=== PATIENT | male | born 1965 | race Caucasian/White ===

== ENCOUNTER 2018-04-19 17:56 | Emergency (ER) | payer OTHER ==
[~2018-04-19] VITALS: Ht 165.1 cm; Wt 83.9 kg
[~2018-04-19 17:56] MED LIST: CRESTOR40 MG; GLUCOPHAGE XR500 MG; SINGULAIR 10MG10 MG; TRICOR145 MG; TRIUMEQ; ZYRTEC10 M3
[2018-04-19] MEDS ORDERED: CRESTOR10 MG (18:13)
== END 2018-04-19 20:53 | disposition home or self-care (01) ==
LOC: ER 17:56
DX: I10 Essential (primary) hypertension (principal); R51 Headache

== ENCOUNTER 2018-04-22 09:35 | Outpatient (CLI) | payer OTHER | END 2018-04-22 09:44 | disposition home or self-care (01) | LOC: RAD 09:35 | DX: J01.90 Acute sinusitis, unspecified (principal) ==

== ENCOUNTER → 2018-04-22 | Emergency (ER) | payer OTHER ==
[~2018-04-22] MED LIST changes: +CRESTOR10 MG
== END | disposition left against medical advice (07) ==
LOC: ER 19:32
DX: Z53.20 Procedure and treatment not carried out because of patient's decision for unspecified reasons (principal)

== ENCOUNTER 2018-09-05 09:58 | Outpatient (CLI) | payer OTHER ==
[2018-09-06] MEDS ORDERED: FORTAMET1000 MG (00:29)
[2018-09-06] MEDS ORDERED: LOSARTAN POTASS50 MG (00:29)
[2018-09-06] MEDS ORDERED: TRIUMEQ TABLET1 EACH (00:31)
== END 2018-09-05 11:24 | disposition home or self-care (01) ==
LOC: MAMO-SONO 09:58
DX: N63.20 Unspecified lump in the left breast, unspecified quadrant (principal)

== ENCOUNTER 2018-09-06 00:16 | Emergency (ER) | payer OTHER ==
[~2018-09-06] VITALS: Ht 165.1 cm; Wt 81.6 kg
[2018-09-06] MEDS ORDERED: FORTAMET1000 MG (00:29)
[2018-09-06] MEDS ORDERED: LOSARTAN POTASS50 MG (00:29)
[2018-09-06] MEDS ORDERED: TRIUMEQ TABLET1 EACH (00:31)
== END 2018-09-06 03:51 | disposition home or self-care (01) ==
LOC: ER 00:16
DX: I16.0 Hypertensive urgency (principal); I10 Essential (primary) hypertension

== ENCOUNTER 2018-09-12 14:00 | Outpatient (CLI) | payer OTHER ==
[~2018-09-12 14:00] MED LIST changes: +FORTAMET1000 MG; +LOSARTAN POTASS50 MG; +TRIUMEQ TABLET1 EACH
== END 2018-09-12 14:16 | disposition home or self-care (01) ==
LOC: RAD 14:00
DX: M54.2 Cervicalgia (principal); M54.6 Pain in thoracic spine; M77.51 Other enthesopathy of right foot and ankle

== ENCOUNTER → 2019-01-22 | Emergency (ER) | payer OTHER | END | disposition left against medical advice (07) | LOC: ER 23:16 | DX: Z53.20 Procedure and treatment not carried out because of patient's decision for unspecified reasons (principal) ==

== ENCOUNTER → 2019-05-14 | Outpatient (CLI) | payer OTHER | END | disposition home or self-care (01) | LOC: TOM 07:15 | DX: Z12.11 Encounter for screening for malignant neoplasm of colon (principal); Z80.0 Family history of malignant neoplasm of digestive organs; Z86.010 Personal history of colon polyps; B20 Human immunodeficiency virus [HIV] disease ==

== ENCOUNTER 2022-07-17 07:25 | Outpatient (CLI) | payer OTHER | END 2022-07-17 07:27 | disposition home or self-care (01) | LOC: LAB 07:25 | PROVIDERS: ATTEND Internal Medicine Cardiovascular Disease | DX: N40.0 Benign prostatic hyperplasia without lower urinary tract symptoms (principal) ==

== ENCOUNTER 2023-07-20 15:13 | Outpatient (CLI) | payer OTHER ==
[2023-07-20 15:56] LABS: HEMATOCRIT 47.7 % (39.0-48.0); HEMOGLOBIN 16.1 g/dL (13-16.00); MEAN CELL VOLUME 91.7 fL (80.0-100.00); MEAN CORPUSCULAR HEMOGLOBIN 30.9 pg (27.00-32.0); MEAN CORPUSCULAR HGB CONC 33.7 g/dl (32.0-36.0); PLATELET COUNT 336 K/uL (150-450); RED CELL DISTRIBUTION WIDTH 13.9 % (11.5-14.5)
[2023-07-20 16:20] LABS: INR 0.98; PARTIAL THROMBOPLASTIN TIME 30.8 SECONDS (22.0-34.0); PROTHROMBIN TIME 10.3 SECONDS (9.0-11.5)
[2023-07-20 16:26] LABS: ALBUMIN 4.3 gm/dL (3.4-5.0); BILIRUBIN TOTAL 0.66 mg/dL (0.3-1.2); CALCIUM 10.4 mg/dL (8.5-10.1); CREATININE SERUM 1.04 mg/dL (0.70-1.30); GFR 73.61; GLOBULINA 3.8 G/DL (2.4-3.5); POTASSIUM 4.99 mEq/L (3.5-5.1); TOTAL PROTEIN 8.1 gm/dL (6.4-8.2)
== END 2023-07-20 15:36 | disposition home or self-care (01) ==
LOC: LAB 15:13
PROVIDERS: ATTEND Internal Medicine Cardiovascular Disease
DX: R53.83 Other fatigue (principal); I26.09 Other pulmonary embolism with acute cor pulmonale; E78.1 Pure hyperglyceridemia; Z79.01 Long term (current) use of anticoagulants

== ENCOUNTER → 2023-08-25 | Emergency (ER) | payer OTHER ==
[~2023-08-25] VITALS: Ht 165.1 cm; Wt 74.8 kg
[~2023-08-25] MED LIST changes: +ACETAMINOPHEN 500 MG GEL..CAP PO STA; +CRESTOR10 MG PO; +FARXIGA10 MG PO; +KETOROLAC TROMETHAMINE 60 MG VIAL IM STA; +SINGULAIR4 M1 PO; +[UNRECOGNIZED DRUG - OTHER]
== END | disposition home or self-care (01) ==
LOC: ER 21:40
DX: G44.209 Tension-type headache, unspecified, not intractable (principal); Z88.8 Allergy status to other drugs, medicaments and biological substances; Z91.013 Allergy to seafood; E11.9 Type 2 diabetes mellitus without complications; Z79.84 Long term (current) use of oral hypoglycemic drugs; I10 Essential (primary) hypertension

== ENCOUNTER 2024-04-30 07:08 | Outpatient (CLI) | payer OTHER ==
[~2024-04-30 07:08] MED LIST changes: -ACETAMINOPHEN 500 MG GEL..CAP PO STA; -KETOROLAC TROMETHAMINE 60 MG VIAL IM STA
== END 2024-04-30 07:19 | disposition home or self-care (01) ==
LOC: TOM 07:08
PROVIDERS: ATTEND Internal Medicine Gastroenterology
DX: B20 Human immunodeficiency virus [HIV] disease (principal); Z12.11 Encounter for screening for malignant neoplasm of colon

== ENCOUNTER 2024-12-02 10:02 | Emergency (ER) | payer OTHER ==
[~2024-12-02] VITALS: Ht 165.1 cm; Wt 71.7 kg
[2024-12-02] MEDS ORDERED: HYZAAR 100-12.1 EACH PO (10:21)
[2024-12-02] MEDS ORDERED: DOVATO 50-3001 EACH PO (10:21)
[2024-12-02] MEDS ORDERED: TOPROL XL25 M1 (10:22)
[2024-12-02] MEDS ORDERED: LIDOCAINE HCL 1% 10ML VIAL ONE (11:40)
[2024-12-02] MEDS ORDERED: LIDOCAINE HCL 1% 10ML VIAL PERCUT ONE (11:45)
== END 2024-12-02 11:59 | disposition home or self-care (01) ==
LOC: ER 10:09
DX: S01.81XA Laceration without foreign body of other part of head, initial encounter (principal); X58.XXXA Exposure to other specified factors, initial encounter; Y93.89 Activity, other specified; Y92.012 Bathroom of single-family (private) house as the place of occurrence of the external cause; Y99.9 Unspecified external cause status; I10 Essential (primary) hypertension; Z88.8 Allergy status to other drugs, medicaments and biological substances; Z87.09 Personal history of other diseases of the respiratory system; Z91.013 Allergy to seafood

== ENCOUNTER 2025-02-01 09:29 | Emergency (ER) | payer OTHER ==
[~2025-02-01] VITALS: Ht 167.6 cm; Wt 70.3 kg
[~2025-02-01 09:29] MED LIST changes: +DOVATO 50-3001 EACH PO; +HYZAAR 100-12.1 EACH PO; +TOPROL XL25 M1
[2025-02-01] MEDS ORDERED: TETANUS & DIPHTHERIA TOX,ADULT 0.5 ML VIAL IM STA (11:32)
[2025-02-01] MEDS ORDERED: CLINDAMYCIN PHOSPHATE 150 MG/ML (300mg) IM STA (11:33)
[2025-02-01] MEDS ORDERED: CLINDAMYCIN PHOSPHATE 150 MG/ML (300mg) ONE (11:51)
[2025-02-01] MEDS ORDERED: DIPHTH,PERTUSS(ACELL),TET VAC 0.5 ML SYRINGE IM ONE (11:51)
== END 2025-02-01 12:05 | disposition home or self-care (01) ==
LOC: ER 09:29
DX: S60.451A Superficial foreign body of left index finger, initial encounter (principal); X58.XXXA Exposure to other specified factors, initial encounter; Y93.89 Activity, other specified; Y92.018 Other place in single-family (private) house as the place of occurrence of the external cause; Y99.9 Unspecified external cause status; Z88.8 Allergy status to other drugs, medicaments and biological substances; Z91.013 Allergy to seafood